=== PATIENT | male | born 1940 | race Caucasian/White ===

== ENCOUNTER → 2017-11-05 | Outpatient (CLI) | payer OTHER | LOC: M.MRI 10-29 14:51 | DX: S83.281A Other tear of lateral meniscus, current injury, right knee, initial encounter (principal); S83.272A Complex tear of lateral meniscus, current injury, left knee, initial encounter; S83.242A Other tear of medial meniscus, current injury, left knee, initial encounter; M22.42 Chondromalacia patellae, left knee; M25.462 Effusion, left knee; M25.461 Effusion, right knee; M71.22 Synovial cyst of popliteal space [Baker], left knee; X58.XXXA Exposure to other specified factors, initial encounter; Y93.89 Activity, other specified; Y92.89 Other specified places as the place of occurrence of the external cause; Y99.8 Other external cause status ==

== ENCOUNTER 2018-05-15 14:49 | Inpatient (IN) | payer OTHER ==
[~2018-05-15] VITALS: Ht 188 cm; Wt 95.3 kg
[2018-05-15 14:25] LABS: ABSOLUTE BASOPHILS 0.1 thou/uL (0.0-0.2); ABSOLUTE EOSINOPHILS 0.3 thou/uL (0.0-0.7); ABSOLUTE LYMPHOCYTES 1.3 thou/uL (0.8-5.3); ABSOLUTE MONOCYTES 0.9 thou/uL (0.0-1.2); ABSOLUTE NEUTROPHILS 7.1 thou/uL (1.6-8.1); BASOPHILS 0.5 %; EOSINOPHILS 3.3 %; HEMATOCRIT 39.4 % (42.0-52.0); HEMOGLOBIN 13.1 gm/dL (14.0-18.0); LYMPHOCYTES 13.1 %; MCH 28.9 pg (26.0-34.0); MCHC 33.2 g/dL (28.0-37.0); MONOCYTES 9.4 %; MPV 6.7 fl. (7.2-11.1); NUCLEATED RBCS 0 /100WBC; PLATELET COUNT* 329 thou/uL (150-400); POLYS 73.7 %; RBC 4.52 mil/uL (4.50-6.00); RDW-CV 14.7 % (10.5-14.5); WBC 9.6 thou/uL (4.0-11.0)
[2018-05-15 14:56] LABS: ALBUMIN 2.9 g/dL (3.4-5.0); CALCIUM 9.2 mg/dL (8.5-10.1); CREATININE 1.4 mg/dL (0.6-1.3); TOTAL BILIRUBIN 1.3 mg/dL (<0.1-1.0)
[2018-05-15 15:00] VITALS: BP 138/73
[2018-05-15 15:34] LABS: BE -1.1 mmol/L (-2 to +3); HCO3 21.2 mmol/L (22.0-26.0); PCO2 28.7 mmHg (35.0-45.0); PO2 65.9 mmHg (75.0-100.0); pH 7.486 (7.340-7.450)
[2018-05-15 16:42] LABS: INFLUENZA A ANTIGEN None Detected (None Detect); INFLUENZA B ANTIGEN None Detected (None Detect)
[2018-05-15] MEDS ORDERED: OMEPRAZOLE 20 M20 M1 PO (17:11)
[2018-05-15] MEDS ORDERED: FLOMAX0.4 MG PO (17:14)
[2018-05-15] MEDS ORDERED: MACROBID 100 M100 M2 PO (17:15)
[2018-05-15] MEDS ORDERED: MULTI VITAMIN1 EACH PO (19:06)
[2018-05-15] MEDS ORDERED: VITAMIN D3400 UNI2 PO (19:07)
[2018-05-15] MEDS ORDERED: NEPHROCAPS SOFT1 CAP PO (19:07)
[2018-05-15] MEDS ORDERED: FISH OIL 1,001000 M2 PO (19:08)
[2018-05-15] MEDS ORDERED: GLUCOSAMINE CH1 EAC7 PO (19:08)
[2018-05-15] MEDS ORDERED: TYLENOL325 MG PO (19:08)
[2018-05-15] MEDS ORDERED: ASPIRIN81 M2 PO (19:08)
--- NOTE | 2018-05-15 19:09 | NUR ---
PT ADMITTED TO ROOM 210 AT 1740. PT AMBULATED TO BED. VSS. MONITOR ATTACHED. ST WITH PACS. ON 3L NC. ALL ORDERS NOTED. WILL CONTINUE TO MONITOR.
[2018-05-15 20:02] VITALS: BP 99/54
[2018-05-16] VITALS: BP 95/54
[2018-05-16 01:22] LABS: URINE BILIRUBIN NEGATIVE (Negative); URINE BLOOD TRACE (Negative); URINE CLARITY CLEAR; URINE COLOR YELLOW; URINE GLUCOSE-RANDOM NEGATIVE (Negative); URINE KETONES NEGATIVE (Negative); URINE LEUKOCYTES-REFLEX NEGATIVE (Negative); URINE NITRITE-REFLEX NEGATIVE (Negative); URINE PROTEIN NEGATIVE (Negative); URINE UROBILINOGEN 0.2 E.U./dl (0.2-1.0)
[2018-05-16 04:00] VITALS: BP 99/58
[2018-05-16 05:13] LABS: HEMATOCRIT 33.8 % (42.0-52.0); HEMOGLOBIN 11.4 gm/dL (14.0-18.0); MCHC 33.7 g/dL (28.0-37.0); RBC 3.94 mil/uL (4.50-6.00); RDW-CV 14.7 % (10.5-14.5); WBC 8.4 thou/uL (4.0-11.0)
[2018-05-16 05:22] LABS: CALCIUM 8.3 mg/dL (8.5-10.1); CREATININE 1.6 mg/dL (0.6-1.3); MAGNESIUM 1.9 mg/dL (1.8-2.4); POTASSIUM 3.4 mmol/L (3.5-5.1)
[2018-05-16 08:00] VITALS: BP 112/62
--- NOTE | 2018-05-16 08:33 | NUR ---
PT IS ABLE TO COMMUNICATE HIS NEEDS TO STAFF EFFECTIVELY. HE HAS DENIED THE NEED FOR PAIN MEDICATION UP TO THIS TIME. ECHO AND CHEST CT TENTATIVELY SCHEDULED FOR TODAY
[2018-05-16 12:21] VITALS: BP 119/58
--- NOTE | 2018-05-16 15:30 | NUR ---
Pt is A&O. Resides at home with his . Normally active and independent. Pt has a cane and walker that he can use if needed, Pt does not currently use either. Hx of HH. No hx of skilled. Goal is home at ar. Pt currently on o2, does not use home o2 at home. Following.
--- NOTE | 2018-05-16 15:43 | 2DMMODE ---
[place] [address] 2 D/M-MODE ECHOCARDIOGRAM Name: BOOGIE MATHUR Room: [address] IN [facility]#: [id number] Admission: 05/15/18 Attend Phys: Radha Mckeon, Discharge: Date of : 40 Date of Service: 05/16/18 1543 Report #: [id number] THIS REPORT FOR: //name// APPROVED REPORT Study performed: 05/16/2018 10:45:53 EXAM: Comprehensive 2D, Doppler, and color-flow Echocardiogram Patient Location: In-Patient Room #: 210 Status: routine BSA: 2.20 HR: 97 bpm BP: 99/58 mmHg Rhythm: NSR Other Information Study Quality: Good Indications Dyspnea 2D Dimensions IVSd: 11.34 (7-11mm) LVOT Diam: 22.15 (18-24mm) LVDd: 49.79 mm PWd: 9.10 (7-11mm) Ascending Ao: 34.91 (22-36mm) LVDs: 37.05 (25-40mm) Aortic Root: 37.09 mm Volumes Left Atrial Volume (Systole) LA ESV Index: 35.20 mL/m2 Aortic Valve AoV Peak Gage.: 3.37 m/s AO Peak Gr.: 45.52 mmHg LVOT Max P.29 mmHg AO Mean Gr.: 28.95 mmHg LVOT Mean P.73 mmHg LVOT Max V: 0.91 m/s AO V2 VTI: 77.26 cm LVOT Mean V: 0.62 m/s CHERELLE (VTI): 0.76 cm2 LVOT V1 VTI: 15.20 cm AI Dane: 2.25 m/s2 AI PHT: 433.20 ms Mitral Valve E/A Ratio: 1.84 [place] [address] 2 D/M-MODE ECHOCARDIOGRAM Name: BOOGIE MATHUR Room: [address] IN ..#: [id number] Admission: 05/15/18 Attend Phys: Radha Mckeon, Discharge: Date of : 40 Date of Service: 05/16/18 1543 Report #: [id number] MV Decel. Time: 211.34 ms MV E Max Gage.: 1.18 m/s MV PHT: 61.29 ms MVA (PHT): 3.59 cm2 TDI E/Lateral E': 7.38 E/Medial E': 7.38 Medial E' Gage.: 0.16 m/s Lateral E' Gage.: 0.16 m/s Pulmonary Valve PV Peak Gage.: 0.75 m/s PV Peak Gr.: 2.22 mmHg Tricuspid Valve RAP Estimate: 5.00 mmHg TR Peak Gr.: 36.78 mmHg RVSP: 41.00 mmHg PA Pressure: 41.00 mmHg Left Ventricle The left ventricle is normal size. There is normal LV segmental wall motion. There is normal left ventricular wall thickness. Left ventricular systolic function is normal. LVEF is 60-65%. Transmitral Doppler flow pattern suggests restrictive physiology. Right Ventricle The right ventricle is normal size. The right ventricular systolic function is normal. Atria Left atrium is mildly dilated. The right atrium size is normal. Aortic Valve The aortic valve is normal in structure. Moderate aortic regurgitation. There is no aortic valvular stenosis. Mitral Valve The mitral valve is normal in structure. Mild to moderate mitral regurgitation. No evidence of mitral valve stenosis. Tricuspid Valve The tricuspid valve is normal in structure. Mild tricuspid regurgitation. Moderate pulmonary hypertension. Pulmonic Valve The pulmonary valve is normal in [place] [address] 2 D/M-MODE ECHOCARDIOGRAM Name: BOOGIE MATHUR Pat Room: [address]#: [id number] Admission: 05/15/18 Attend Phys: Radha Mckeon, Discharge: Date of : 40 Date of Service: 05/16/18 1543 Report #: [id number] regurgitation. Great Vessels The aortic root is normal in size. IVC is normal in size and collapses >50% with inspiration. Pericardium There is no pericardial effusion. <Conclusion> The left ventricle is normal size. There is normal left ventricular wall thickness. LVEF is 60-65%. The left ventricular diastolic function is normal. Left ventricular systolic function is normal. Transmitral Doppler flow pattern suggests restrictive physiology. The aortic valve is normal in structure. There is no aortic valvular stenosis. Mild to moderate mitral regurgitation. Mild tricuspid regurgitation. Moderate pulmonary hypertension. 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
[2018-05-16 15:58] VITALS: BP 118/61
--- NOTE | 2018-05-16 19:00 | NUR ---
ASSUMED CARE OF PT AT 0730. PT REMAINS A&O X4 CALM AND COOPERATIVE. PT VSS AND TRACING ST ON THE MONITOR. PT DENIES C/O PAIN OR DISCOMFORT. MEDICATIONS ADMINIUSTERED PER AUG. HOURLY ROUNDING COMPLETED FOR PT COMFORT AND SAFTEY. NURSING WILL CONTINUE TO MONITOR.
[2018-05-16 20:00] VITALS: BP 108/64
[2018-05-17 00:58] VITALS: BP 129/67
[2018-05-17 04:45] LABS: ABSOLUTE EOSINOPHILS 0.5 thou/uL (0.0-0.7); ABSOLUTE LYMPHOCYTES 1.7 thou/uL (0.8-5.3); ABSOLUTE MONOCYTES 0.9 thou/uL (0.0-1.2); ABSOLUTE NEUTROPHILS 5.1 thou/uL (1.6-8.1); BASOPHILS 0.6 %; EOSINOPHILS 5.9 %; HEMATOCRIT 33.6 % (42.0-52.0); HEMOGLOBIN 11.3 gm/dL (14.0-18.0); LYMPHOCYTES 21.2 %; MCHC 33.6 g/dL (28.0-37.0); MCV 86.2 fL (80.0-100.0); MONOCYTES 10.4 %; MPV 6.7 fl. (7.2-11.1); NUCLEATED RBCS 0 /100WBC; PLATELET COUNT* 317 thou/uL (150-400); POLYS 61.9 %; RBC 3.89 mil/uL (4.50-6.00); RDW-CV 14.5 % (10.5-14.5); WBC 8.2 thou/uL (4.0-11.0)
[2018-05-17 05:06] LABS: CALCIUM 8.4 mg/dL (8.5-10.1); CREATININE 1.7 mg/dL (0.6-1.3); POTASSIUM 3.7 mmol/L (3.5-5.1)
[2018-05-17 05:49] VITALS: BP 115/61
--- NOTE | 2018-05-17 06:03 | NUR ---
PATIENT RESTED IN BED, NO ACUTE CHANGES. PATIENT DID NOT SHOW SIGNS OF DISTRESS. CALL LIGHT WITH IN REACH, HOURLY ROUNDING OBSERVED.
--- NOTE | 2018-05-17 06:31 | CON ---
[address] [address] CONSULTATION Name: BOOGIE MATHUR Room: [address] IN .R.#: [id number] Admission: 05/15/18 Attend Phys: Radha Mckeon MD Discharge: Date of : 40 Report #: [id number] THIS REPORT FOR: //name// CC: Yomi Mckeon DATE OF SERVICE: 05/16/2018 REFERRING PHYSICIAN: Radha Mckeon MD REASON FOR EVALUATION: Progressive shortness of breath, hypoxemia, abnormal chest x-ray. HISTORY OF PRESENT ILLNESS: The patient is a pleasant 78-year-old gentleman who presented with shortness of breath, cough, which was mostly dry. The patient states that his shortness of breath and cough has been worse for 2 weeks. Denies fever or chills. Denies mucus production. Denies hemoptysis or wheezing. He states that over the last several months, he has been having progressive shortness of breath on moderate exertion. He has [place], feels not able to do what he used to do. He is having exertional chest pain with significant exertion similar to lifting heavy objects. Chest pain is central and it is relieved with rest. MEDICATIONS: Include omeprazole, currently on Levaquin and Zosyn. He is on aspirin. PAST MEDICAL HISTORY: Includes TIA, previous history of pneumonia, back surgery, BPH, history of UTI. FAMILY HISTORY: Noncontributory. SOCIAL HISTORY: He smoked only one time in his life. No significant smoking or alcohol abuse. REVIEW OF SYSTEMS: CONSTITUTIONAL: No fever. EYES: Unremarkable. HEENT: Denies. RESPIRATORY: As above, progressive shortness of breath. CARDIOVASCULAR: Exertional chest pain, intermittent with significant exertion. GASTROINTESTINAL: Has reflux disease. GENITOURINARY: Previous history of UTI. SKIN: Unremarkable. MUSCULOSKELETAL: Unremarkable. ALLERGY, ENDOCRINE, AND HEMATOLOGY: [place] [address] CONSULTATION Name: BOOGIE MATHUR Room: [address]#: [id number] Admission: 05/15/18 Attend Phys: Radha Mckeon MD Discharge: Date of : 40 Report #: [id number] PHYSICAL EXAMINATION: GENERAL: The patient is pleasant, not in distress. VITAL SIGNS: Stable. He is afebrile at 36 and pulse 100, respiratory rate is 18, blood pressure 119/58, O2 saturation was adequate on 3.5 L. HEAD AND NECK: Mucous membranes moist. NECK: No lymph node enlargement. Supple. CHEST: Has bibasilar inspiratory crackles, both sides at the bases. CARDIOVASCULAR: Regular rhythm, no murmur. ABDOMEN: Soft, nontender, no organomegaly. EXTREMITIES: No significant edema. Pulses equal. PSYCHIATRIC: Alert, oriented and normal affect. NEUROLOGIC: No focal deficits. LABORATORY DATABASE: I reviewed his chest x-ray, which showed asymmetric interstitial infiltrate, worse on the right side with the presence of pleural effusion, worse on the right side as well. Chest CT reviewed, showed bilateral upper lobe interstitial interlobular septal thickening with ground-glass infiltrate, much worse on the right side with associated effusion, which is moderate size on the right with compressive atelectasis. Other lab work includes elevated brain natriuretic peptide of over 1000. White blood cell count 8.4, hemoglobin 11.4, platelet normal. Chemistry reviewed. Creatinine 1.6. Blood gas reviewed 7.48, pCO2 P28 pO2 of 65. Serology: Influenza A antigen was negative. ASSESSMENT AND PLAN: 1. The patient is a 78-year-old gentleman with progressive shortness of breath, presented with acute hypoxemic respiratory failure and now with a dry cough, exertional chest pain. His chest x-ray shows effusions and interstitial infiltrate, worse on the right side. I suspect pulmonary edema related to congestive heart failure exacerbation. Echocardiogram is pending. At this time, the patient received Lasix since yesterday with some improvement. I will repeat another dose of Lasix at 40 mg and agreed to repeat chest x-ray in the morning. 2. Questionable pneumonia. The patient denies any suggestive history of aspiration. Pneumonia is possible less likely. May consider switching Zosyn to Unasyn. He does not have risk factor for multidrug resistant organism. Agree with Levaquin. Waiting for cultures. 3. Exertional chest pain with history of congestive heart failure exacerbation. Recommend cardiology evaluation. This was discussed with the nurse. <ELECTRONICALLY SIGNED> By: Cielo Hernandez MD 05/17/18 0631 1452 [id number] Lee Mckenzie MD /nt
[2018-05-17 12:15] VITALS: BP 115/65
[2018-05-17 16:12] VITALS: BP 112/60
--- NOTE | 2018-05-17 19:39 | NUR ---
ASSUMED CARE OF PT AT 07. PT REMMAINS A&O X4 CALM AND COOPERATIVE. PT VSS AND TRACING ST ON THE MONITOR. PT HAS HAD NO C/O PAIN OR DISCOMFORT. MEDICATIONS ADMINISTERED PER AUG. PT AMBULATING IN THE HALWAY WITH STAFF AND WITHOUT SUPPLEMENTAL O2. PT HAS BEEN SATING 93-96% ON ROOM AIR AND NURSING WILL CLOSELY MONITOR O2 SATS. HOURLY ROUNDING COMPLETED FOR PT COMFORT AND SAFTEY.
[2018-05-17 20:00] VITALS: BP 131/70
[2018-05-18 00:03] VITALS: BP 110/72
--- NOTE | 2018-05-18 01:14 | NUR ---
PATIENT RESTED IN BED. PATIENT PLACE ON 1 LITER O2 DUE TO OXYGEN 89%-91%, O2 RETURN WITH IN NORMAL LIMITS. PATIENT DID NOT COMPLAIN OF SOA. PATIENT IS NOT SHOWING SIGNS OF DISTRESS.
[2018-05-18 03:42] VITALS: BP 141/75
[2018-05-18 04:18] LABS: HEMATOCRIT 34.1 % (42.0-52.0); HEMOGLOBIN 11.2 gm/dL (14.0-18.0); MCH 28.5 pg (26.0-34.0); MCHC 32.9 g/dL (28.0-37.0); MCV 86.7 fL (80.0-100.0); MPV 6.9 fl. (7.2-11.1); RBC 3.94 mil/uL (4.50-6.00); RDW-CV 14.8 % (10.5-14.5); WBC 7.9 thou/uL (4.0-11.0)
[2018-05-18 04:43] LABS: CALCIUM 8.3 mg/dL (8.5-10.1); CREATININE 1.5 mg/dL (0.6-1.3); POTASSIUM 3.8 mmol/L (3.5-5.1)
[2018-05-18 08:01] VITALS: BP 122/68
[2018-05-18 13:14] VITALS: BP 102/68
[2018-05-18] MEDS ORDERED: LOPRESSOR25 PO (14:30)
[2018-05-18] MEDS ORDERED: CEFDINIR300 MG PO (14:31)
[2018-05-18 14:32] VITALS: BP 102/68
--- NOTE | 2018-05-18 15:27 | EKG ---
[place] [address] ELECTROCARDIOGRAM REPORT Name: KEVANBOOGIE Stewart Room: [address] IN .R.#: [id number] Admission: 05/15/18 Attend Phys: Radha Mckeon MD Discharge: 05/18/18 Date of : 40 Report #: [id number] THIS REPORT FOR: //name// [facility] ED Test Date: 2018-05-15 Test Time: 15:59:46 Pat Name: BOOGIE MATHUR Department: Room: [facility] Gender: M Soccer Coach: LYLA HOLGUIN : 1940 Requested By: Nelda Cornell Order Number: [id number] MD: Betito Rosario Measurements Intervals [place] Rate: 108 P: 48 MS: 182 QRS: 42 QRSD: 87 T: 1 QT: 333 QTc: 447 Interpretive Statements Sinus tachycardia Borderline low voltage, extremity leads No previous ECG available for comparison Electronically Signed On 05-18-2018 15:27:10 [employer]IDENTIAL [employer]ES REP by Betito Rosario [email or web address] <ELECTRONICALLY SIGNED> By: Betito Rosario MD, [facility] 05/18/18 1527 1559 1559 Betito Rosario MD, FACC /EPI
--- NOTE | 2018-05-18 15:44 | NUR ---
PT DISCHARGED HOME WITH . PT VSS AND DENIES C/O PAIN OR DISCOMFORT. PT AND VERBALIZED UNDERSTANDING OF DC INSTRUCTIONS. IV AND AND MATERIAL HAULER ROMOVED PRIOR TO DISCHARGE. PT TOOK ALL PERSONAL BELONGINGS AND PRESCRIPTIONS AT TIME OF DISCHARGE.
[2018-05-21 18:10] LABS: ADENOVIRUS Negative (Negative); INFLUENZA A Negative (Negative); INFLUENZA B Negative (Negative); METAPNEUMOVIRUS Negative (Negative); PARAINFLUENZA 1 Negative (Negative); PARAINFLUENZA 2 Negative (Negative); PARAINFLUENZA 3 Negative (Negative); RHINOVIRUS Negative (Negative); RSV A Negative (Negative); RSV B Negative (Negative)
== END 2018-05-18 15:20 | disposition home or self-care (01) | DRG 314 ==
LOC: M.2W 15:33 → M.TBA-ER 15:33 → M.2W 17:36
PROVIDERS: Internal Medicine; Internal Medicine Pulmonary Disease; Personal Emergency Response Attendant; ADMIT Internal Medicine
DX: I42.1 Obstructive hypertrophic cardiomyopathy (principal); J18.9 Pneumonia, unspecified organism; J96.01 Acute respiratory failure with hypoxia; J90 Pleural effusion, not elsewhere classified; I50.30 Unspecified diastolic (congestive) heart failure; N40.0 Benign prostatic hyperplasia without lower urinary tract symptoms; R00.0 Tachycardia, unspecified; I34.0 Nonrheumatic mitral (valve) insufficiency; I27.20 Pulmonary hypertension, unspecified; Z86.73 Personal history of transient ischemic attack (TIA), and cerebral infarction without residual deficits; Z87.440 Personal history of urinary (tract) infections; Z88.6 Allergy status to analgesic agent

== ENCOUNTER → 2018-06-05 | Outpatient (CLI) | payer OTHER ==
[~2018-06-05] MED LIST: ASPIRIN81 M2 PO; CEFDINIR300 MG PO; FISH OIL 1,001000 M2 PO; FLOMAX0.4 MG PO; GLUCOSAMINE CH1 EAC7 PO; LOPRESSOR25 PO; MACROBID 100 M100 M2 PO; MULTI VITAMIN1 EACH PO; NEPHROCAPS SOFT1 CAP PO; OMEPRAZOLE 20 M20 M1 PO; TYLENOL325 MG PO; VITAMIN D3400 UNI2 PO
== END ==
LOC: M.RAD 16:14
DX: J18.1 Lobar pneumonia, unspecified organism (principal); J98.11 Atelectasis; R91.8 Other nonspecific abnormal finding of lung field; R01.1 Cardiac murmur, unspecified

== ENCOUNTER → 2018-07-15 | Outpatient (CLI) | payer OTHER | LOC: M.CT 11:03 | DX: J90 Pleural effusion, not elsewhere classified (principal); R91.8 Other nonspecific abnormal finding of lung field ==

== ENCOUNTER → 2018-07-18 | Outpatient (CLI) | payer OTHER ==
[2018-07-18 17:53] LABS: ABSOLUTE BASOPHILS 0.1 thou/uL (0.0-0.2); ABSOLUTE EOSINOPHILS 0.2 thou/uL (0.0-0.7); ABSOLUTE LYMPHOCYTES 1.9 thou/uL (0.8-5.3); ABSOLUTE MONOCYTES 0.6 thou/uL (0.0-1.2); ABSOLUTE NEUTROPHILS 5.4 thou/uL (1.6-8.1); BASOPHILS 0.8 %; HEMATOCRIT 38.3 % (42.0-52.0); HEMOGLOBIN 12.7 gm/dL (14.0-18.0); LYMPHOCYTES 23.5 %; MCH 28.7 pg (26.0-34.0); MCHC 33.3 g/dL (28.0-37.0); MCV 86.1 fL (80.0-100.0); MONOCYTES 7.2 %; MPV 7.3 fl. (7.2-11.1); NUCLEATED RBCS 0 /100WBC; PLATELET COUNT* 219 thou/uL (150-400); POLYS 65.5 %; RBC 4.44 mil/uL (4.50-6.00); RDW-CV 15.9 % (10.5-14.5); WBC 8.2 thou/uL (4.0-11.0)
[2018-07-18 18:06] LABS: CALCIUM 8.9 mg/dL (8.5-10.1); CREATININE 1.4 mg/dL (0.6-1.3); DIRECT BILIRUBIN 0.2 mg/dL (<0.1-0.3); TOTAL PROTEIN 6.9 g/dL (6.4-8.2)
[2018-07-18 18:53] LABS: ESR (SEDRATE) 5 mm/hr (0-20)
== END ==
LOC: M.LAB 17:19
PROVIDERS: Internal Medicine
DX: R01.1 Cardiac murmur, unspecified (principal); R21 Rash and other nonspecific skin eruption; R94.5 Abnormal results of liver function studies

== ENCOUNTER → 2018-08-01 | Outpatient (CLI) | payer OTHER ==
[2018-08-01 09:35] LABS: HEMOGLOBIN 12.6 gm/dL (14.0-18.0); MCH 28.5 pg (26.0-34.0); MCHC 33.1 g/dL (28.0-37.0); MCV 86.1 fL (80.0-100.0); MPV 7.1 fl. (7.2-11.1); RBC 4.41 mil/uL (4.50-6.00); RDW-CV 15.7 % (10.5-14.5); WBC 9.8 thou/uL (4.0-11.0)
[2018-08-01 09:46] LABS: CALCIUM 8.7 mg/dL (8.5-10.1); CREATININE 1.4 mg/dL (0.6-1.3); POTASSIUM 4.1 mmol/L (3.5-5.1)
== END ==
LOC: M.LAB 09:15
DX: I35.1 Nonrheumatic aortic (valve) insufficiency (principal)

== ENCOUNTER → 2018-12-05 | Outpatient (CLI) | payer OTHER ==
[2018-12-05 09:31] LABS: CALCIUM 8.7 mg/dL (8.5-10.1); CREATININE 1.6 mg/dL (0.6-1.3); MAGNESIUM 2.1 mg/dL (1.8-2.4); POTASSIUM 4.6 mmol/L (3.5-5.1)
== END ==
LOC: M.LAB 09:02
PROVIDERS: Internal Medicine
DX: I48.0 Paroxysmal atrial fibrillation (principal); I49.3 Ventricular premature depolarization

== ENCOUNTER → 2021-07-25 | Outpatient (CLI) | payer OTHER | LOC: M.LAB 07:41 | PROVIDERS: ATTEND Internal Medicine Gastroenterology | DX: Z01.812 Encounter for preprocedural laboratory examination (principal); Z20.822 Contact with and (suspected) exposure to COVID-19 ==